=== PATIENT | female | born 1960 | race Caucasian/White ===

== ENCOUNTER 2019-02-08 09:50 | Outpatient (CLI) | payer OTHER ==
--- NOTE | 2019-02-08 12:05 | RAD ---
2 VIEWS LEFT TIBIA AND FIBULA: Date: 02/08/19 COMPARISON: None. HISTORY: Pain after fall. FINDINGS: 2 views of the left tibia/fibula shows no evidence of acute fracture or dislocation. No soft tissue s welling is seen. No degenerative changes are present. IMPRESSION: Unremarkable exam. POS: CET
--- NOTE | 2019-02-08 12:13 | RAD ---
3 VIEWS LEFT ANKLE: Date: 02/08/19 COMPARISON: None. HISTORY: Left ankle pain after fall. FINDINGS: 3 views of the left ankle show no evidence of acute fracture or dislocation. Mild lateral soft tissue swelling is seen. No degenerative changes are present. IMPRESSION: No evidence of acute osseous abnormality. POS: CET
== END 2019-02-08 09:51 | disposition home or self-care (01) ==
LOC: RAD-FRANK 09:50
DX: S99.922A Unspecified injury of left foot, initial encounter (principal); S99.912A Unspecified injury of left ankle, initial encounter

== ENCOUNTER 2020-11-13 09:01 | Outpatient (CLI) | payer OTHER | END 2020-11-13 09:02 | disposition home or self-care (01) | LOC: RAD-FRANK 09:01 | PROVIDERS: ATTEND Nurse Practitioner Family | DX: M25.572 Pain in left ankle and joints of left foot (principal); M19.072 Primary osteoarthritis, left ankle and foot ==